=== PATIENT | male | born 1970 | race Caucasian/White ===

== ENCOUNTER 2019-03-06 10:05 | Inpatient (IN) | payer MEDICARE, MEDICAID ==
[2019-03-06 11:02] LABS: HEMATOCRIT 50.8 % (42.0-52.0); HEMOGLOBIN 16.4 g/dl (13.5-17.5); MEAN CORPUSCULAR HGB CONC 32.3 g/dl (32.0-36.5); MEAN CORPUSCULAR VOLUME 92.9 fl (80.0-96.0); PLATELET COUNT, AUTOMATED 302 10^3/uL (150-450); RED BLOOD COUNT 5.47 10^6/uL (4.30-6.10); WHITE BLOOD COUNT 13.5 10^3/uL (4.0-10.0)
[2019-03-06] MEDS ORDERED: GABA-845 (11:06)
[2019-03-06] MEDS ORDERED: [UNRECOGNIZED DRUG - CODE] (11:06)
[2019-03-06 11:34] LABS: ALBUMIN 4.3 GM/DL (3.2-5.2); ALT/SGPT 25 U/L (12-78); BILIRUBIN,DIRECT 0.2 MG/DL (0.0-0.2); BILIRUBIN,TOTAL 0.9 MG/DL (0.2-1.0); BLOOD UREA NITROGEN 12 MG/DL (7-18); CALCIUM LEVEL 9.6 MG/DL (8.5-10.1); CARBON DIOXIDE LEVEL 28 MEQ/L (21-32); CHLORIDE LEVEL 104 MEQ/L (98-107); CPK CREATINE PHOSPHOKINASE 426 U/L (39-308); CREATININE FOR GFR 0.99 MG/DL (0.70-1.30); ETHYL ALCOHOL (ETHANOL) 0.003 % (0.000-0.010); GLOMERULAR FILTRATION RATE > 60.0 (>56); GLUCOSE, FASTING 129 MG/DL (70-100); SODIUM LEVEL 140 MEQ/L (136-145); TOTAL PROTEIN 7.6 GM/DL (6.4-8.2)
[2019-03-06 11:35] LABS: ACETAMINOPHEN LEVEL < 2.0 UG/ML (10.0-30.0)
[2019-03-06] MEDS ORDERED: haloperidoL 5 MG TAB PO PRN (12:30)
[2019-03-06] MEDS ORDERED: LORazepam 1 MG TAB PO PRN (12:30)
[2019-03-06] MEDS ORDERED: OLANZapine ORAL DISINTEGRATING TAB 5MG PO PRN (12:30)
[2019-03-06] MEDS ORDERED: IBUPROFEN 400 MG TAB PO PRN (18:45)
[2019-03-06] MEDS ORDERED: MAALOX 30 ML SUSP *UDC PO PRN (18:45)
[2019-03-06] MEDS ORDERED: ACETAMINOPHEN TAB 650MG DOSE (2X325MG) PO PRN (18:45)
[2019-03-06] MEDS ORDERED: traZODone 50 MG TAB PO PRN (18:45)
[2019-03-06] MEDS ORDERED: MOM 30ML SUSPENSION UDC PO PRN (18:45)
--- NOTE | 2019-03-06 21:26 | HPEPDOC ---
General Date of Admission Mar 06, 2019 at 12:24 Date of Service: Mar 06, 2019 Chief Complaint The patient is a 49-year-old male admitted with a reason for visit of Psychosis. Source: Old records History of Present Illness 49 year old male admitted for psychosis. i am seeing the patient for medical history and physical. As per RN patient just got to the unit this afternoon since then he has been uncoperative, laying in his bed and making growling noises. I entered into the patient's room wit the RN. asked if I could examine him? He refused. I asked if anything was bothering him he said "You". Wanted me to leave the room. Data was obtained from RN and EMR. Home Medications Unable to Obtain Active Prescriptions or Reported Meds Allergies Coded Allergies: Unobtainable (Unverified , 03/06/19) Past Medical History Medical History from EMR Schizophrenia History of psychosis Anxiety Depression History of back spasms Family History From EMR Mother: , cancer Father: , unknown Siblings: Alive, well Social History * Smoker: current smoker Drugs: marijuana A-FIB/CHADSVASC A-FIB History Current/History of A-Fib/PAF?: No Review of Systems Other systems Patient refused to talk Physical Examination Other physical findings Patient refused physical exam Was seen laying down comfortably in bed curled in position with blankets over his face. Did not seem to be in any acute physical distress. Vital Signs Vital Signs Date Time Temp Pulse Resp B/P (MAP) Pulse Ox O2 Delivery O2 Flow Rate FiO2 03/06/19 10:22 96.9 122 16 115/88 97 Room Air Laboratory Data Labs 24H Laboratory Tests 2 03/06/19 10:49: Nucleated Red Blood Cells % (auto) 0.0, Anion Gap 8, Glomerular Filtration Rate > 60.0, Calcium Level 9.6, Total Bilirubin 0.9, Direct Bilirubin 0.2, Aspartate Amino Transf (AST/SGOT) 22, Alanine Aminotransferase (ALT/SGPT) 25, Alkaline Phosphatase 65, Total Creatine Kinase 426H, Total Protein 7.6, Albumin 4.3, Albumin/Globulin Ratio 1.30, Thyroid Stimulating Hormone (TSH) 1.330, Salicylates Level 2.0L, Acetaminophen Level < 2.0L, Ethyl Alcohol Level 0.003 CBC/BMP Laboratory Tests 03/06/19 10:49 Assessment/Plan 49 year old male admitted for psychosis. i am seeing the patient for medical history and physical. elidia refused to give history and refused physical exam. Some useful data was gathered from the EMR. Acute psychosis As per psychiatry. Does not seem to have any acute medical issues at this time . Medicine will sign off. If needed please reconsult. Plan / VTE VTE Prophylaxis Ordered?: No NORA HUERTA MD Mar 06, 2019 18:51
--- NOTE | 2019-03-07 10:09 | MHHPEPDOC ---
[facility] History & Physical History and Physical DATE OF ADMISSION: Mar 06, 2019 at 12:24 New Patient Lexx Post MRN: N/A Date of : N/A Date of Service: 03/07/2019 Chief Complaint "..." History of Present Illness The patient, a 49-year-old man with a reported history of psychotic illnesses found in a parking lot acting very bizarre. He had been growling at various unseen others, was brought in out of an abundance caution. In the ER, he was unable to verbally anything with his bizarre behaviors repeating statements that were said to him and making unusual animal vocalizations. The patient has a reported history of being treated for psychotic thoughts and behavior; however, today he is unable to be met with as he is so distorted. He is aggressive in a single room throwing objects at people, making various clicking sounds when approached. The information below is extracted from previous information and chart review. Review Of Systems He is unable to engage due to mental status. Past Psychiatric History Has a history of reported schizophrenia and multiple psychiatric admissions in 8 different chart. Currently, on fluphenazine oral, appears to follow up with [facility]. Allergies Please see below. Family Psychiatric History Unknown at this time. Social History Unknown at this time. Patient was found wandering, secondary chart not available at this time. Substance Abuse History Unknown, toxicology is canceled. Medical History Does not appear to have any chronic medical medications. Mental Status Examination General: Fairly poor hygiene. Speech: Odd vocalizations Thought processes: Unknown MSK: multiple unusual movements Thought content: Unknown Abstract reasoning, and computation: Impaired Description of associations: Impaired Description of abnormal or psychotic thoughts: Unknown Judgment: Impaired Insight: Impaired Orientation: Appears alert and oriented and response others round. Cognition: Altered secondary to thought process Recent and remote memory: Unable to determine Attention span and concentration: Unable to determine Fund of knowledge: Unable to determine Mood: "various vocal clicking sounds, unable to translate into Egyptian" Affect: Bizarre Diagnoses Schizophrenia. Catatonia. Assessment and Plan Schizophrenia: Recommend holding off on neuroleptics at this time due to concerns for catatonia with various behavior, such as repeating of statements. Catatonia: We'll start Ativan 0.5 TID to see if there is any improvement. Disposition The patient will need a much further admission due to his severely impairing psychosis leaving him unable to care for himself, aggressive at times and making only unusual animal sounds Problem List Initial Treatment Plan 1. Patient was admitted on a 9.39 legal status. 2. Complete history was obtained. 3. With patients permission, family will be contacted and database will be expanded. 4. Patients medication regimen will be reviewed and changed accordingly. 5. Patient will be provided with protected environment. 6. Patient will be treated with individual, group, and milieu therapies. 7. Patient will receive supportive psych-education. 8. Discharge planning will commence immediately. 9. Outpatient follow-up treatment will be strongly recommended. 10. The initial treatment plan will focus initially on: Estimated Length Of Stay 4-7 days. Time Spent 70 minutes in total of coordination of care time and chart review. Sunday Vital Signs Vital Signs Date Time Temp Pulse Resp B/P (MAP) Pulse Ox O2 Delivery O2 Flow Rate FiO2 03/06/19 10:22 96.9 122 16 115/88 97 Room Air Laboratory Data 24H Labs Laboratory Tests 2 03/06/19 10:49: Nucleated Red Blood Cells % (auto) 0.0, Anion Gap 8, Glomerular Filtration Rate > 60.0, Calcium Level 9.6, Total Bilirubin 0.9, Direct Bilirubin 0.2, Aspartate Amino Transf (AST/SGOT) 22, Alanine Aminotransferase (ALT/SGPT) 25, Alkaline Phosphatase 65, Total Creatine Kinase 426H, Total Protein 7.6, Albumin 4.3, Albumin/Globulin Ratio 1.30, Thyroid Stimulating Hormone (TSH) 1.330, Salicyla freda Level 2.0L, Acetaminophen Level < 2.0L, Ethyl Alcohol Level 0.003 CBC/BMP Laboratory Tests 03/06/19 10:49 Medications Unable to Obtain Active Prescriptions or Reported Meds Allergies Coded Allergies: Unobtainable (Unverified , 03/06/19) LIYA MARTINI DO Mar 07, 2019 10:09
--- NOTE | 2019-03-07 13:16 | ECGEPIP ---
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
[2019-03-07] MEDS: LORazepam 0.5 MG TAB PO SCH ×2 (15:46→20:35)
[2019-03-08] MEDS: LORazepam 0.5 MG TAB PO SCH ×3 (08:55→21:00)
[2019-03-08] MEDS: NYSTATIN 100,000 UNITS/GM TOPICAL PWD 15 GM TOP SCH ×2 (14:49→21:00)
--- NOTE | 2019-03-08 16:04 | MHIPN ---
DATE: 03/08/2019 The patient today remains very paranoid. He actually met us at his door. I was with Gema Estrella, one of the nurses. He basically refused to say much. He was very vague about everything and had no complaints. The only thing he wanted was some antifungal medication for his feet. MENTAL STATUS EXAMINATION: I am unable to do the mental status examination as the patient is not cooperative. He definitely appears to be very paranoid still. DIAGNOSIS: 1. Schizophrenia. 2. Catatonia. TREATMENT PLAN: The patient will continue to be monitored for paranoid thoughts and he is currently on the Ativan 0.5 mg three times a day and on Ativan for catatonia. He may need an antipsychotic at some point also.
[2019-03-09] MEDS: LORazepam 0.5 MG TAB PO SCH ×3 (08:06→21:00)
[2019-03-09] MEDS: NYSTATIN 100,000 UNITS/GM TOPICAL PWD 15 GM TOP SCH ×2 (08:08→21:00)
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
[2019-03-10] MEDS: NYSTATIN 100,000 UNITS/GM TOPICAL PWD 15 GM TOP SCH ×2 (09:00→21:00)
[2019-03-10] MEDS: LORazepam 0.5 MG TAB PO SCH ×3 (09:00→21:00)
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
[2019-03-10 16:00] VITALS: BP 166/107
[2019-03-11] MEDS: NYSTATIN 100,000 UNITS/GM TOPICAL PWD 15 GM TOP SCH ×2 (08:03→20:15)
[2019-03-11] MEDS: LORazepam 0.5 MG TAB PO SCH ×3 (08:03→20:15)
--- NOTE | 2019-03-11 12:15 | MHIPNPDOC ---
[facility] Progress Note Progress Note Inpatient Progress Note Lexx Post MRN: N/A Date of : N/A Date of Service: 03/11/2019 History of Present Illness The patient, a 49-year-old man with a reported history of psychotic illnesses found in a parking lot acting very bizarre. He had been growling at various unseen others, was brought in out of an abundance caution. In the ER, he was unable to verbally anything with his bizarre behaviors repeating statements that were said to him and making unusual animal vocalizations. The patient has a reported history of being treated for psychotic thoughts and behavior; however, today he is unable to be met with as he is so distorted. He is aggressive in a single room throwing objects at people, making various clicking sounds when approached. The information below is extracted from previous information and chart review. Interval History Psychiatric symptoms today: The patient appears to be making some improvement. He was first very bizarre when I met with him but later in the day was more amenable. Appeared to be paranoid but much more sociable. Affective: Patient relates no concerns of depression. Psychotic: The patient is still observed making unusual animal-like sounds throughout the day. He has significant problems communicating any of his needs, significant psychosis. Anxiety: The patient saw significant paranoia. Misc: Sleeping and eating behaviors have been improving. Group Attendance: No group attendance. Medication Side effects: See ROS below Behavioral problems/significant events overnight: None reported. Staff Report: The patient is more present in the milieu, less bizarre at times. Review Of Systems Unable to obtain due to mental status. Psychotherapy None on this visit. Vital Signs Reviewed. Mental Status Examination General: Fairly poor hygiene. Speech: More fluid. Thought processes: Unknown MSK: multiple unusual movements Thought content: Unknown Abstract reasoning, and computation: Impaired Description of associations: Impaired Description of abnormal or psychotic thoughts: Unknown Judgment: Impaired Insight: Impaired Orientation: Appears alert and oriented and response others round. Cognition: Altered secondary to thought process Recent and remote memory: Unable to determine Attention span and concentration: Unable to determine Fund of knowledge: Unable to determine Mood: "You won't see me again." Affect: Bizarre Diagnoses Schizophrenia. Catatonia. Assessment and Plan Schizophrenia: Increase fluphenazine to 10 mg BID, appears to be improving. Catatonia: Continue Ativan 0.5 mg TID. Disposition The patient will need a much further admission due to his severely impairing psychosis leaving him unable to care for himself, aggressive at times and making only unusual animal sounds Time Spent 15 minutes in total of coordination of care time and chart review. Sunday Vital Signs Vital Signs Date Time Temp Pulse Resp B/P (MAP) Pulse Ox O2 Delivery O2 Flow Rate FiO2 03/11/19 09:55 Room Air 03/10/19 16:00 97.9 93 16 166/107 (126) 03/06/19 10:22 97 Current Medications Current Medications Medications (Trade) Dose Ordered Sig/Sukhwinder Route PRN Reason Start Time Stop Time Status Last Admin Dose Admin Acetaminophen (Tylenol Tab) 650 mg Q6HP PRN PO HEADACHE or DISCOMFORT 03/06/19 18:45 Al Hydrox/Mg Hydrox/Simethicone (Mylanta) 30 ml Q4HP PRN PO HEARTBURN/INDIGESTION 03/06/19 18:45 Fluphenazine HCl (Prolixin) 5 mg BID PO 03/10/19 09:00 03/11/19 08:02 Haloperidol (Haldol) 5 mg Q6HP PRN PO ANXIETY/AGITATION 03/06/19 12:30 03/06/19 14:50 Home Med (Med Rec Complete!) ASDIRECTED XX 03/06/19 13:00 03/06/19 13:05 DC Ibuprofen (Advil) 400 mg Q6HP PRN PO PAIN 03/06/19 18:45 Lorazepam (Ativan) 0.5 mg TID PO 03/07/19 16:00 03/10/19 16:35 Lorazepam (Ativan) 1 mg Q6HP PRN PO ANXIETY/AGITATION 03/06/19 12:30 03/06/19 14:50 Magnesium Hydroxide (Milk Of Magnesia) 30 ml DAILYPRN PRN PO CONSTIPATION 03/06/19 18:45 Nystatin (Mycostatin Powder, Nystop) 1 dose BID TOP 03/08/19 09:00 03/08/19 14:49 Olanzapine (ZyPREXA ZYDIS) 5 mg Q4HP PRN PO AGITATION 03/06/19 12:30 Trazodone HCl (Desyrel) 50 mg QHSP PRN PO INSOMNIA 03/06/19 18:45 Allergies Coded Allergies: Unobtainable (Unverified , 03/06/19) LIYA MARTINI DO Mar 11, 2019 12:14
[2019-03-12 07:20] VITALS: BP 138/82
[2019-03-12] MEDS: LORazepam 0.5 MG TAB PO SCH ×3 (08:17→20:06)
[2019-03-12] MEDS: NYSTATIN 100,000 UNITS/GM TOPICAL PWD 15 GM TOP SCH ×2 (08:17→20:20)
--- NOTE | 2019-03-12 11:48 | MHIPNPDOC ---
[facility] Progress Note Progress Note Inpatient Progress Note Lexx Post MRN: N/A Date of : N/A Date of Service: 03/12/2019 History of Present Illness The patient, a 49-year-old man with a reported history of psychotic illnesses found in a parking lot acting very bizarre. He had been growling at various unseen others, was brought in out of an abundance caution. In the ER, he was unable to verbally anything with his bizarre behaviors repeating statements that were said to him and making unusual animal vocalizations. The patient has a reported history of being treated for psychotic thoughts and behavior; however, today he is unable to be met with as he is so distorted. He is aggressive in a single room throwing objects at people, making various clicking sounds when approached. The information below is extracted from previous information and chart review. Interval History Psychiatric symptoms today: The patient is met with is less bizarre, more able to speak. He has had multiple on and off periods. Is able to relay information more effectively today. Affective: Patient relates no concerns of depression. Psychotic: The patient has been making less difficult and bizarre statements. He has periods of time where he is lucid and for other times he is quite paranoid and bizarre. Anxiety: The patient still has significant paranoia. Misc: Sleeping and eating behaviors have been improving. Group Attendance: No group attendance. Medication Side effects: See ROS below Behavioral problems/significant events overnight: None reported. Staff Report: The patient is more present in the milieu, less bizarre at times. Review Of Systems General: Denies fever or appetite changes Cardiovascular: Denies Chest pain or palpations GI: Denies Nausea, vomiting, or bowel changes Respiratory: Denies shortness of breath or cough Neuro: Denies dizziness, tremors Derm: Denies any rashes or pruritus : Denies any dysuria or urinary problems MSK: Denies any muscle tightness or stiffness HEENT: Denies any vision changes or headaches Psychotherapy None on this visit. Vital Signs Reviewed. Mental Status Examination General: Improved hygiene. Speech: More fluid. Thought processes: More linear. MSK: Smooth gait. Thought content: Some bizarreness at times. Abstract reasoning, and computation: Improved. Description of associations: Improved. Description of abnormal or psychotic thoughts: Improved. Judgment: Improved. Insight: Improved. Orientation: Appears alert and oriented x3. Cognition: Improved. Recent and remote memory: Improved, still does not remember time prior to lucidity. Attention span and concentration: Improved. Fund of knowledge: Improved. Mood: "Okay." Affect: More euthymic. Diagnoses Schizophrenia. Catatonia. Assessment and Plan Schizophrenia: Continue fluphenazine 10 mg BID. Catatonia: Continue Ativan 0.5 mg TID. Disposition Patient will need a further inpatient admission as he has periods of lucidity, however, still will need more medication titration and observation as the patient sometimes can be highly altered and unable to engage in any meaningful activity. Time Spent 15 minutes in total of coordination of care time and chart review. Sunday Vital Signs Vital Signs Date Time Temp Pulse Resp B/P (MAP) Pulse Ox O2 Delivery O2 Flow Rate FiO2 03/12/19 07:20 98.2 89 18 138/82 (100) 03/11/19 09:55 Room Air 03/06/19 10:22 97 Current Medications Current Medications Medications (Trade) Dose Ordered Sig/Sukhwinder Route PRN Reason Start Time Stop Time Status Last Admin Dose Admin Acetaminophen (Tylenol Tab) 650 mg Q6HP PRN PO HEADACHE or DISCOMFORT 03/06/19 18:45 Al Hydrox/Mg Hydrox/Simethicone (Mylanta) 30 ml Q4HP PRN PO HEARTBURN/INDIGESTION 03/06/19 18:45 Fluphenazine HCl (Prolixin) 5 mg BID PO 03/10/19 09:00 03/12/19 08:17 Haloperidol (Haldol) 5 mg Q6HP PRN PO ANXIETY/AGITATION 03/06/19 12:30 03/06/19 14:50 Home Med (Med Rec Complete!) ASDIRECTED XX 03/06/19 13:00 03/06/19 13:05 DC Ibuprofen (Advil) 400 mg Q6HP PRN PO PAIN 03/06/19 18:45 Lorazepam (Ativan) 0.5 mg TID PO 03/07/19 16:00 03/10/19 16:35 Lorazepam (Ativan) 1 mg Q6HP PRN PO ANXIETY/AGITATION 03/06/19 12:30 03/06/19 14:50 Magnesium Hydroxide (Milk Of Magnesia) 30 ml DAILYPRN PRN PO CONSTIPATION 03/06/19 18:45 Nystatin (Mycostatin Powder, Nystop) 1 dose BID TOP 03/08/19 09:00 03/08/19 14:49 Olanzapine (ZyPREXA ZYDIS) 5 mg Q4HP PRN PO AGITATION 03/06/19 12:30 Trazodone HCl (Desyrel) 50 mg QHSP PRN PO INSOMNIA 03/06/19 18:45 Allergies Coded Allergies: Unobtainable (Unverified , 03/06/19) LIYA MARTINI DO Mar 12, 2019 11:48
[2019-03-13] MEDS: NYSTATIN 100,000 UNITS/GM TOPICAL PWD 15 GM TOP SCH ×2 (09:00→20:12)
[2019-03-13] MEDS: LORazepam 0.5 MG TAB PO SCH ×3 (09:00→20:14)
--- NOTE | 2019-03-13 10:47 | MHIPNPDOC ---
[facility] Progress Note Progress Note Inpatient Progress Note Lexx Post MRN: N/A Date of : N/A Date of Service: 03/13/2019 History of Present Illness The patient, a 49-year-old man with a reported history of psychotic illnesses found in a parking lot acting very bizarre. He had been growling at various unseen others, was brought in out of an abundance caution. In the ER, he was unable to verbally anything with his bizarre behaviors repeating statements that were said to him and making unusual animal vocalizations. The patient has a reported history of being treated for psychotic thoughts and behavior; however, today he is unable to be met with as he is so distorted. He is aggressive in a single room throwing objects at people, making various clicking sounds when approached. The information below is extracted from previous information and chart review. Interval History Narrative: The patient is met with in his room. He is fairly bizarre, making unusual statements, walking around this provider in an unusual way. Affective: Unknown. Psychotic: Still paranoid and bizarre at times, lucid at other times. Anxiety: Appears quite paranoid. Eating and sleeping behaviors: Normalizing. Group Attendance: Has attended groups more frequently. Medication Side effects: See ROS below Behavioral problems/significant events overnight: Has had problems with interfering with other providers. Staff Report: The patient has moments of lucidity, but still is quite distorted most days. Review Of Systems General: Denies fever or appetite changes Cardiovascular: Denies Chest pain or palpations GI: Denies Nausea, vomiting, or bowel changes Respiratory: Denies shortness of breath or cough Neuro: Denies dizziness, tremors Derm: Denies any rashes or pruritus : Denies any dysuria or urinary problems MSK: Denies any muscle tightness or stiffness HEENT: Denies any vision changes or headaches Psychotherapy None on this visit. Vital Signs Reviewed. Mental Status Examination General: Improved hygiene. Speech: Somewhat fluid. Thought processes: More linear. MSK: Smooth gait. Thought content: Bizarre and paranoid. Abstract reasoning, and computation: Improved. Description of associations: Improved. Description of abnormal or psychotic thoughts: Improved. Judgment: Impaired. Insight: Impaired. Orientation: Appears alert and oriented x3. Cognition: Improved. Recent and remote memory: Improved, still does not remember time prior to lucidity. Attention span and concentration: Improved. Fund of knowledge: Improved. Mood: "Okay." Affect: More euthymic. Diagnoses Schizophrenia. Catatonia. Assessment and Plan Schizophrenia: Continue fluphenazine 10 mg BID. Catatonia: Continue Ativan 0.5 mg TID. Disposition The patient will be further observed and titrated on his medications with potential discharge next week if he continues to improve. Time Spent 15 minutes in total of coordination of care time and chart review. Vital Signs Vital Signs Date Time Temp Pulse Resp B/P (MAP) Pulse Ox O2 Delivery O2 Flow Rate FiO2 03/12/19 14:19 Room Air 03/12/19 07:20 98.2 89 18 138/82 (100) Current Medications Current Medications Medications (Trade) Dose Ordered Sig/Sukhwinder Route PRN Reason Start Time Stop Time Status Last Admin Dose Admin Acetaminophen (Tylenol Tab) 650 mg Q6HP PRN PO HEADACHE or DISCOMFORT 03/06/19 18:45 Al Hydrox/Mg Hydrox/Simethicone (Mylanta) 30 ml Q4HP PRN PO HEARTBURN/INDIGESTION 03/06/19 18:45 Fluphenazine HCl (Prolixin) 5 mg BID PO 03/10/19 09:00 03/12/19 12:27 DC 03/12/19 08:17 Fluphenazine HCl (Prolixin) 10 mg BID PO 03/12/19 21:00 03/13/19 09:00 Haloperidol (Haldol) 5 mg Q6HP PRN PO ANXIETY/AGITATION 03/06/19 12:30 03/06/19 14:50 Home Med (Med Rec Complete!) ASDIRECTED XX 03/06/19 13:00 03/06/19 13:05 DC Ibuprofen (Advil) 400 mg Q6HP PRN PO PAIN 03/06/19 18:45 Lorazepam (Ativan) 0.5 mg TID PO 03/07/19 16:00 03/10/19 16:35 Lorazepam (Ativan) 1 mg Q6HP PRN PO ANXIETY/AGITATION 03/06/19 12:30 03/06/19 14:50 Magnesium Hydroxide (Milk Of Magnesia) 30 ml DAILYPRN PRN PO CONSTIPATION 03/06/19 18:45 Miscellaneous (Unresolved Clarification Entry) SEE LABEL COMMENTS DAILY XX 03/12/19 09:00 03/12/19 15:53 DC Nystatin (Mycostatin Powder, Nystop) 1 dose BID TOP 03/08/19 09:00 03/08/19 14:49 Olanzapine (ZyPREXA ZYDIS) 5 mg Q4HP PRN PO AGITATION 03/06/19 12:30 Trazodone HCl (Desyrel) 50 mg QHSP PRN PO INSOMNIA 03/06/19 18:45 Allergies Coded Allergies: Unobtainable (Unverified , 03/06/19) LIYA MARTINI DO Mar 13, 2019 10:47
[2019-03-14] MEDS: NYSTATIN 100,000 UNITS/GM TOPICAL PWD 15 GM TOP SCH ×2 (08:43→20:05)
[2019-03-14] MEDS: LORazepam 0.5 MG TAB PO SCH ×3 (08:44→21:00)
--- NOTE | 2019-03-14 11:27 | MHIPNPDOC ---
[facility] Progress Note Progress Note Inpatient Progress Note Lexx Post MRN: N/A Date of : N/A Date of Service: 03/14/2019 History of Present Illness The patient, a 49-year-old man with a reported history of psychotic illnesses found in a parking lot acting very bizarre. He had been growling at various unseen others, was brought in out of an abundance caution. In the ER, he was unable to verbally anything with his bizarre behaviors repeating statements that were said to him and making unusual animal vocalizations. The patient has a reported history of being treated for psychotic thoughts and behavior; however, today he is unable to be met with as he is so distorted. He is aggressive in a single room throwing objects at people, making various clicking sounds when approached. The information below is extracted from previous information and chart review. Interval History Narrative: The patient is met with in the hallway. He reports he is doing well. He states the medication makes him feel better. Affective: Does not report any affecting problems. Psychotic: The patient has more lucid intervals or commonly and less paranoid and bizarre thoughts. Anxiety: Patient's paranoia appears to be subsiding. Eating and sleeping behaviors: Normalizing. Group Attendance: Has attended groups more frequently. Medication Side effects: See ROS below Behavioral problems/significant events overnight: None reported. Staff Report: The patient's periods of lucidity are common, more able to engage with staff. Review Of Systems General: Denies fever or appetite changes Cardiovascular: Denies Chest pain or palpations GI: Denies Nausea, vomiting, or bowel changes Respiratory: Denies shortness of breath or cough Neuro: Denies dizziness, tremors Derm: Denies any rashes or pruritus : Denies any dysuria or urinary problems MSK: Denies any muscle tightness or stiffness HEENT: Denies any vision changes or headaches Psychotherapy None on this visit. Vital Signs Reviewed. Mental Status Examination General: Improved hygiene. Speech: Somewhat fluid. Thought processes: More linear. MSK: Smooth gait. Thought content: Bizarre and paranoid. Abstract reasoning, and computation: Improved. Description of associations: Improved. Description of abnormal or psychotic thoughts: Improved. Judgment: Impaired. Insight: Impaired. Orientation: Appears alert and oriented x3. Cognition: Improved. Recent and remote memory: Improved, still does not remember time prior to lucidity. Attention span and concentration: Improved. Fund of knowledge: Improved. Mood: "Okay." Affect: More euthymic. Diagnoses Schizophrenia. Catatonia. Assessment and Plan Schizophrenia: Increase fluphenazine to 15 mg BID. Catatonia: Continue Ativan 0.5 mg TID. Disposition Patient will be continued to be monitored, appears to be improving, potential discharge on Sunday if continues to improve. Time Spent 15 minutes in total of coordination of care time and chart review. Sunday Vital Signs Vital Signs Date Time Temp Pulse Resp B/P (MAP) Pulse Ox O2 Delivery O2 Flow Rate FiO2 03/13/19 09:00 Room Air 03/12/19 07:20 98.2 89 18 138/82 (100) Current Medications Current Medications Medications (Trade) Dose Ordered Sig/Sukhwinder Route PRN Reason Start Time Stop Time Status Last Admin Dose Admin Acetaminophen (Tylenol Tab) 650 mg Q6HP PRN PO HEADACHE or DISCOMFORT 03/06/19 18:45 Al Hydrox/Mg Hydrox/Simethicone (Mylanta) 30 ml Q4HP PRN PO HEARTBURN/INDIGESTION 03/06/19 18:45 Fluphenazine HCl (Prolixin) 5 mg BID PO 03/10/19 09:00 03/12/19 12:27 DC 03/12/19 08:17 Fluphenazine HCl (Prolixin) 10 mg BID PO 03/12/19 21:00 03/14/19 08:43 Haloperidol (Haldol) 5 mg Q6HP PRN PO ANXIETY/AGITATION 03/06/19 12:30 03/06/19 14:50 Home Med (Med Rec Complete!) ASDIRECTED XX 03/06/19 13:00 03/06/19 13:05 DC Ibuprofen (Advil) 400 mg Q6HP PRN PO PAIN 03/06/19 18:45 Lorazepam (Ativan) 0.5 mg TID PO 03/07/19 16:00 03/10/19 16:35 Lorazepam (Ativan) 1 mg Q6HP PRN PO ANXIETY/AGITATION 03/06/19 12:30 03/06/19 14:50 Magnesium Hydroxide (Milk Of Magnesia) 30 ml DAILYPRN PRN PO CONSTIPATION 03/06/19 18:45 Miscellaneous (Unresolved Clarification Entry) SEE LABEL COMMENTS DAILY XX 03/12/19 09:00 03/12/19 15:53 DC Nystatin (Mycostatin Powder, Nystop) 1 dose BID TOP 03/08/19 09:00 03/14/19 08:43 Olanzapine (ZyPREXA ZYDIS) 5 mg Q4HP PRN PO AGITATION 03/06/19 12:30 Trazodone HCl (Desyrel) 50 mg QHSP PRN PO INSOMNIA 03/06/19 18:45 Allergies Coded Allergies: Unobtainable (Unverified , 03/06/19) LIYA MARTINI DO Mar 14, 2019 11:27
[2019-03-15] MEDS: NYSTATIN 100,000 UNITS/GM TOPICAL PWD 15 GM TOP SCH ×2 (08:51→20:51)
[2019-03-15] MEDS: LORazepam 0.5 MG TAB PO SCH ×3 (08:51→20:15)
[2019-03-15] MEDS: MAGNESIUM SULFATE GRANULES(EPSOM SALT) 1LB TOP SCH ×2 (11:39→20:50)
[2019-03-16] MEDS: LORazepam 0.5 MG TAB PO SCH ×4 (08:43→20:09)
[2019-03-16] MEDS: MAGNESIUM SULFATE GRANULES(EPSOM SALT) 1LB TOP SCH ×2 (08:45→21:00)
[2019-03-16] MEDS: NYSTATIN 100,000 UNITS/GM TOPICAL PWD 15 GM TOP SCH ×2 (08:45→20:09)
[2019-03-17] MEDS: LORazepam 0.5 MG TAB PO SCH (08:29)
[2019-03-17] MEDS: MAGNESIUM SULFATE GRANULES(EPSOM SALT) 1LB TOP SCH (08:29)
[2019-03-17] MEDS: NYSTATIN 100,000 UNITS/GM TOPICAL PWD 15 GM TOP SCH (08:29)
--- NOTE | 2019-03-17 11:04 | MHDSPDOC ---
[facility] Discharge Summary Discharge Summary DATE OF ADMISSION: Mar 06, 2019 at 12:24 DATE OF DISCHARGE: 03/19/19 Discharge Lexx Post MRN: N/A Date of : N/A Date of Service: 03/17/2019 Diagnoses Schizophrenia. Catatonia. History of Present Illness The patient, a 49-year-old man with a reported history of psychotic illnesses found in a parking lot acting very bizarre. He had been growling at various unseen others, was brought in out of an abundance caution. In the ER, he was unable to verbally anything with his bizarre behaviors repeating statements that were said to him and making unusual animal vocalizations. The patient has a reported history of being treated for psychotic thoughts and behavior; however, today he is unable to be met with as he is so distorted. He is aggressive in a single room throwing objects at people, making various clicking sounds when approached. The information below is extracted from previous information and chart review. Consultants Involved Hospitalist/PCP screening Treatment and Progress On The Unit The patient was admitted to the inpatient unit, initially he was difficult to interview as he would just make unusual animalistic sounds. He was started on Ativan initially for catatonia like symptoms and made some resolution and was more talkative. He was then started on fluphenazine 5 mg BID increased to a tot al of 10 mg BID with positive effects. Patient became much more able to speak, curse and had returned to a normal mental state. The patient had declined a injectable reporting that he was "fine" with the oral medications. The patient as he resolved began to attend groups, was more social on the unit, and was more able to engage with others demonstrating a clear process as he had improved. Discharge Assessment A 49-year-old man with a history of schizophrenia decompensated with catatonia treated with low dose Ativan, fluphenazine that improves his symptoms dramatically. He goes from making animalistic sounds and hiding in his room to becoming sociable and returning to his normal mental status who has good insight. On the day of discharge the patient declines any further voluntary admission and does not meet involuntary criteria in my opinion as he has good insight into the situation many times more than he had previously. He has been denying suicidal or homicidal ideation, has been compliant with treatment process, thus he must be discharged in good danica. Mental Status Examination General: Well dressed with good hygiene Speech: Spontaneous and fluid Thought processes: Linear and logical MSK: Smooth and coordinated gait, no signs of tremors or involuntary orofacial movements Thought content: Future orientated Abstract reasoning, and computation: Intact Description of associations: Intact Description of abnormal or psychotic thoughts: Denies any suicidal or homicidal ideation. Denies any auditory or visual hallucinations. Does not appear to be responding to internal stimuli. Does not appear to be endorsing any bizarre or paranoid ideation. Judgment: fair Insight: fair Orientation: Alert and orientated 3 Cognition: Grossly normal Recent and remote memory: Intact Attention span and concentration: Intact Fund of knowledge: Adequate Mood: "okay" Affect: Euthymic with a full range Follow Up The social work team worked during the predischarge meeting in order to evaluate for further issues of lethality address them fully before discharge. They worked on safety planning with the patient's family members in order to ensure that the patient will have a safe and effective discharge. Time Spent The amount of time spent in the coordination of care for this patient was approximately 40 minutes. Sunday Vital Signs/I&Os Vital Signs Date Time Temp Pulse Resp B/P (MAP) Pulse Ox O2 Delivery O2 Flow Rate FiO2 03/13/19 09:00 Room Air 03/12/19 07:20 98.2 89 18 138/82 (100) Medications Scheduled Fluphenazine HCl (Fluphenazine HCl) 10 Mg Tablet, 1 TAB PO BID for thoughts for 7 Days, #14 Allergies Coded Allergies: Unobtainable (Unverified , 03/06/19) LIYA MARTINI DO Mar 17, 2019 11:04
[2019-03-17] MEDS ORDERED: FLUP10TA11 PO (11:06)
== END 2019-03-17 12:18 | disposition home or self-care (01) | DRG 885 ==
LOC: EDBD 10:05 → M ED 10:05 → M ED INP 12:24 → M PSY 13:50
PROVIDERS: ADMIT Psychiatry & Neurology Addiction Medicine; ATTEND Psychiatry & Neurology Addiction Medicine
DX: F20.2 Catatonic schizophrenia (principal)